=== PATIENT | female | born 1990 | race Caucasian/White ===

== ENCOUNTER 2019-08-20 11:08 | Emergency (ER) | payer OTHER, SELFPAY ==
--- NOTE | ~2019-08-20 | US_ITS ---
EXAMINATION: US soft tissue pelvic EXAM DATE: 08/20/2019 13:22 INDICATION: Right lower quadrant pain. TECHNIQUE: Multiple grayscale and Doppler images of the symptomatic right lower quadrant pelvic regio n were obtained (by a technologist who performed the scan) and subsequently reviewed. There is no pr ior study for comparison. FINDINGS: Appendix was searched for but not visualized on this exam. Please note that normal appendix is not e xpected to be visualized by ultrasound. Sometimes an abnormal appendix can be visualized. One of the se cine loops probably demonstrates uterus with IUD in expected position. The abdominal wall is unrem arkable. IMPRESSION: 1. Appendix not identified. Reviewed, dictated and finalized at location A. IMPRESSION: 1. Appendix not identified.
--- NOTE | ~2019-08-20 | US_ITS ---
EXAMINATION: US right upper quadrant EXAM DATE: 08/20/2019 13:20 INDICATION: Right quadrant pain. TECHNIQUE: Multiple grayscale and Doppler images of the abdomen right upper quadrant were obtained (caitlyn y a technologist who performed the scan) and subsequently reviewed. There is no prior study for jessenia ham. FINDINGS: The pancreatic head and body are normal in appearance. The pancreatic tail is not visualized. The l iver has normal echogenicity and contour. There are no focal liver lesions identified. There is no evidence of intrahepatic biliary duct dilation. Portal venous flow was seen in the hepatopedal, nor mal direction and has normal Doppler waveform. No right-sided hydronephrosis. Common bile duct measures 2 mm, which is normal. The gallbladder wall is normal in thickness, with ex pected amount of distention. No sonographic evidence of pericholecystic fluid. There is no cholelit hiases. Technologist performing exam reports patient did not demonstrate sonographic Mercado's sign. Please note that this sign is less reliable in patients who have received pain medication. IMPRESSION: 1. Unremarkable abdominal ultrasound exam. Reviewed, dictated and finalized at location A.
[2019-08-20] MEDS: SODIUM CHLORIDE 0.9% IV 1,000 ML 999 ML IV CONT ×2 (11:28→12:46)
[2019-08-20] MEDS: ONDANSETRON INJ 4 MG/2 ML VIAL IV PUSH (11:30)
[2019-08-20 11:32] VITALS: BP 131/78; PULSE 111; RESP 17; TEMP 36.4; O2SAT 98
[2019-08-20 11:38] LABS: Add Urine Microscopic? YES; Appearance Urine Clear (Clear); Bilirubin Urine Negative (Negative); Blood Urine Negative (Negative); Color Urine Yellow (Yellow); Glucose Urine UA Negative (Negative); Ketones Urine Negative (Negative); Leukocyte Esterase Ur Negative LEU/UL (Negative); Nitrate Urine Negative (Negative); Protein Urine Trace (Negative); Urobilinogen Urine 0.2 mg/dL (0.2-1.0); pH Urine 6.5 (5.0-8.0)
[2019-08-20 11:40] LABS: Pregnancy On Board Control Positive; Urine Pregnancy Test Negative
[2019-08-20 11:43] LABS: Bacteria Urine 3+ /hpf; RBC Urine 0-2 /hpf (0-2); Squamous Epithelial Cell Urine Moderate /hpf (Few); WBC Urine 0-3 /hpf (0-3)
[2019-08-20 11:50] LABS: Basophils Absolute Auto 0.04 K/mm3 (0.00-0.10); Basophils Percent Auto 0.3 % (0.0-1.0); Eosinophils Absolute Auto 0.09 K/mm3 (0.02-0.50); Eosinophils Percent Auto 0.7 % (1.0-6.0); Hemoglobin 15.9 g/dL (12.0-15.0); Immature Granulocyte Absolute 0.05 K/mm3 (0.00-0.00); Immature Granulocyte Percent A 0.4 % (0.0-0.0); Lymphocytes Absolute Auto 0.42 K/mm3 (1.10-4.50); Lymphocytes Percent Auto 3.3 % (18.0-42.0); Mean Corpuscular HGB Conc 33.1 g/dL (32.0-36.0); Mean Corpuscular Hemoglobin 29.1 pg (27.0-31.0); Mean Corpuscular Volume 87.8 fL (78.0-102.0); Mean Platelet Volume 10.7 fl (9.2-11.8); Monocytes Absolute Auto 0.42 K/mm3 (0.10-0.90); Monocytes Percent Auto 3.3 % (2.0-11.0); Neutrophils Absolute Auto 11.7 K/mm3 (1.7-7.2); Platelet Count Result 202 K/mm3 (150-420); Red Blood Count 5.47 M/mm3 (4.20-5.40); White Blood Count 12.7 K/mm3 (4.8-10.8)
[2019-08-20 12:01] LABS: Alanine Aminotransferase 21 U/L (14-59); Albumin Level 4.3 g/dL (3.4-5.0); Alkaline Phosphatase 60 U/L (46-116); Anion Gap 15.9 mmol/L (7-16); Aspartate Amino Transferase 18 U/L (15-37); Blood Urea Nitrogen 16 mg/dL (7-18); Calcium 8.7 mg/dL (8.5-10.1); Carbon Dioxide 24 mmol/L (21-32); Chloride 105 mmol/L (98-108); Estimated Glomerular Filt Rate > 60; Glucose 144 mg/dL (70-99); Osmolality Calculated 296 mOsm/kg (285-295); Potassium 3.9 mmol/L (3.5-5.1); Sodium 141 mmol/L (136-145); Total Protein 7.6 g/dL (6.4-8.2)
--- NOTE | 2019-08-20 12:30 | PC.NURSE ---
CONSENT TO [facility] FOR MEDICAL RECORDS
[2019-08-20 12:32] VITALS: BP 125/71; PULSE 80
--- NOTE | 2019-08-20 12:41 | ED.GENADULT ---
HPI - General Adult General Chief complaint: Nausea/Vomiting/Diarrhea Stated complaint: Possible fever,stomach crapping,vomiting,diarrhea History of Present Illness HPI narrative: Johana presented to the emergency department with abdominal pain nausea and vomiting. She had had chronic abdominal pain and nausea for 3 weeks. She was seen in ER last week for this without negative workup reportedly. However, this morning she workup with abdominal pain and profuse watery diarrhea and and NBNB vomiting. Denies melena, hematochezia and hematemesis. No chest pain or shortness of breath as well as syncope. No fevers or chills. Related Data Home Medications Medication Instructions Recorded Confirmed citalopram 40 mg PO DAILY 08/20/19 08/20/19 hydrocodone-acetaminophen [[place]] 1 tablet PO Q6H PRN 08/20/19 08/20/19 hydroxyzine HCl 10 mg PO QID PRN 08/20/19 08/20/19 lamotrigine 100 mg PO DAILY 08/20/19 08/20/19 metformin 500 mg PO DAILY 08/20/19 08/20/19 montelukast 10 mg PO DAILY 08/20/19 08/20/19 Allergies Allergy/AdvReac Type Severity Reaction Status Date / Time Sulfa (Sulfonamide Allergy Unknown HIVES Verified 02/01/19 22:10 Antibiotics) amoxicillin AdvReac Severe RESISTANCE Verified 02/01/19 22:10 Review of Systems Constitutional: Constitutional: Reports as per HPI Eyes: Eyes: Reports as per HPI ENT: Reports system reviewed and no additional complaints, except as documented Cardiovascular: Cardiovascular: Denies chest pain, Denies rapid heart rate and Denies radiating jaw, neck or arm pain Respiratory: Respiratory: Reports no additional respiratory complaints Gastrointestinal: Gastrointestinal: Reports as per HPI Genitourinary: Genitourinary: Reports no additional female genitourinary complaints Musculoskeletal: Musculoskeletal: Reports no additional musculoskeletal complaints Integumentary/Breasts: Skin/Breast: Reports system reviewed and no additional complaints, except as docu Neurologic: Reports system reviewed and no additional complaints, except as documented Psychiatric: Psychiatric: Reports no additional psychiatric complaints Endocrine: Endocrine: Reports no additional endocrine complaints Hematologic/Lymphatic: Hematologic/Lymphatic: Reports no additional hematologic/lymphatic complaints Allergic/Immunologic: Allergic/Immunologic: Reports no additional allergic/immunologic complaints Exam Const: Other: Lying in bed without acute distress. Was able to move around positions in bed without discomfort. HENMT: Other: normocephalic, atraumatic Eyes: Conjunctivae: conjunctivae normal Pupils: Equal, round and reactive pupils present Neck: Neck: normal visual inspection Chest: Chest palpation & inspection: normal inspection of the chest Resp: Effort & Inspection: normal respiratory effort and no use of accessory muscles Auscultation: clear to auscultation bilaterally Cardio: Rate: regular rate Rhythm: regular rhythm Heart sounds: no murmurs GI: GI Palp: Yes Soft to palpation Other: abdomen was soft and diffusely tender to palpation. She was most tender in the epigastric region but also had significant tenderness in the right lower quadrant and right upper quadrant. no guarding or rebound tenderness. negative obturator and psoas sign. normal bowel sounds. : General: Yes no CVA tenderness Back/Spine/Pelvis: Back: no CVA tenderness Skin: General skin exam: normal color Neuro: General: patient oriented x3 and moves all extremities Extrem: General: normal to inspection Psych: Mental Status: mental status grossly normal Course Course Emergency Course: Johana was seen and evaluated. she was given Zofran, a L fluids and labs were drawn. She did feel significantly better after the 1st L fluids and Zofran. Labs were significant for a UA that had no nitrites or leuk esterase, he did bacteria but also appeared to be a contaminated sample with multiple squamous cells. She
[2019-08-20] MEDS: MORPHINE SULFATE 4 MG/ML INJ IV PUSH (12:46)
[2019-08-20 13:59] VITALS: BP 111/59
== END 2019-08-20 14:00 | disposition home or self-care (01) ==
PROVIDERS: Emergency Provider Family Medicine; PCP Family Medicine
DX: K52.9 Noninfective gastroenteritis and colitis, unspecified (principal)
CPT/HCPCS: 36415; 76705; 76857; 80053; 81001; 81025; 85025; 96361; 96374; 96375; 99283; 99284; J2270; J2405; J7030

== ENCOUNTER 2022-07-07 19:24 | Emergency (ER) | payer BC, SELFPAY ==
--- NOTE | ~2022-07-07 | XR_ITS ---
EXAMINATION: XR shoulder LT min 2V DATE: 07/07/2022 20:39 INDICATION: Left shoulder pain. TECHNIQUE: 4 views of left shoulder were obtained. COMPARISON: None. FINDINGS: Bone alignment is normal. No fracture. Joint spaces are normal. IMPRESSION: 1. Normal left shoulder. Reviewed, dictated and finalized at location A. 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 Normal left shoulder.
[2022-07-07 19:33] VITALS: BP 138/65; PULSE 95; RESP 20; TEMP 36.6; O2SAT 100
--- NOTE | 2022-07-07 20:03 | ED.GENADULT ---
HPI - General Adult General Chief complaint: Extremity Injury, Upper Stated complaint: left arm injury Time Seen by Provider: 07/07/22 19:36 Source: patient Mode of arrival: ambulatory Limitations: no limitations History of Present Illness HPI narrative: Patient is a 32-year-old white female who yesterday was laying on her left side in her bathroom between the toilet and the bathtub trying to fix the pipes for 5 hours from 11:00 a.m. to 4:00 p.m. patient says that her pain has gradually increase over today and now it hurts and she can not raise her arm overhead unless she uses her right arm to lift it overhead. And then when she does lift it overhead it actually makes the pain better. Denies any numbness or tingling. Denies any neck pain pain is in her posterior shoulder and her left trapezius. Denies any joint pain when moving the shoulder or elbow or wrist pain. No previous injuries. Denies any trauma. She took ibuprofen this morning and last 1 was around 2:00 p.m. both were 200 mg. denies any other complaints. Denies any numbness tingling or weakness. She is not weak in the arm , it just hurts when she moves it. Been walking talking seen hearing voiding stooling and well without problems or cough shortness of breath rash or itching bleeding or bruising. Related Data Home Medications Medication Instructions Recorded Confirmed citalopram 40 mg tablet 40 mg PO DAILY 08/20/19 08/20/19 hydrocodone 5 mg-acetaminophen 325 1 tablet PO Q6H PRN Pain 08/20/19 08/20/19 mg tablet ([place]) hydroxyzine HCl 10 mg tablet 10 mg PO QID PRN Anxiety 08/20/19 08/20/19 lamotrigine 100 mg tablet 100 mg PO DAILY 08/20/19 08/20/19 metformin 500 mg tablet,extended 500 mg PO DAILY 08/20/19 08/20/19 release 24 hr montelukast 10 mg tablet 10 mg PO DAILY 08/20/19 08/20/19 Allergies Allergy/AdvReac Type Severity Reaction Status Date / Time Sulfa (Sulfonamide Allergy Unknown HIVES Verified 02/01/19 22:10 Antibiotics) amoxicillin AdvReac Severe RESISTANCE Verified 02/01/19 22:10 Review of Systems Constitutional: Constitutional: Reports as per HPI Eyes: Eyes: Reports as per HPI ENT: Reports system reviewed and no additional complaints, except as documented Cardiovascular: Cardiovascular: Reports as per HPI Respiratory: Respiratory: Reports as per HPI Gastrointestinal: Gastrointestinal: Reports as per HPI Genitourinary: Genitourinary: Reports no additional female genitourinary complaints Comments: has not been sexually active since she is a currently on her. Cannot be . Musculoskeletal: Musculoskeletal: Reports no additional musculoskeletal complaints, Reports as per HPI, Denies back pain, Denies myalgias, Denies arthralgias, Denies joint swelling and Reports muscle cramps Integumentary/Breasts: Skin/Breast: Reports system reviewed and no additional complaints, except as docu Neurologic: Reports system reviewed and no additional complaints, except as documented, Reports as per HPI, Denies focal weakness, Denies numbness and Denies weakness Exam Narrative: White female no apparent distress unless she tries to raise her left arm. She cannot raise is secondary to pain. She is able to raise her left arm using her right arm and then she has full range of motion. Left shoulder has tenderness the posterior deltoid area. She also so has pain in her left trapezius which is mild tenderness. Neck is nontender with full range of motion. She has range of motion of her left shoulder but no pain in the shoulder with range of motion. Her left elbows full range of motion any tenderness or pain with range of motion as is her wrist and hand. Her radial pulses +2 she has good capillary refill there of left hand. Lungs are clear heart is regular rate rhythm without murmurs gallops or rubs. Course Vital Signs Vital signs: Vital Signs Temperature 36.6 C 07/07/22 19:33 Pulse Rate 95 07/07/22 19:33 Respiratory Rate 20
[2022-07-07] MEDS: KETOROLAC 30 MG/ML VIAL (*BKC) IM (20:25)
[2022-07-07 21:05] VITALS: BP 140/90; PULSE 80; RESP 20; TEMP 36.6; O2SAT 98
--- NOTE | 2022-07-07 21:09 | PC.NURSE ---
patient unsure of home meds
== END 2022-07-07 21:08 | disposition home or self-care (01) ==
PROVIDERS: Emergency Provider Emergency Medicine; PCP Family Medicine
DX: M25.512 Pain in left shoulder (principal); Z79.891 Long term (current) use of opiate analgesic; Z79.84 Long term (current) use of oral hypoglycemic drugs
CPT/HCPCS: 73030; 96372; 99283; J1885

== ENCOUNTER 2022-07-23 17:49 | Emergency (ER) | payer BC, SELFPAY ==
[2022-07-23 18:03] VITALS: BP 139/84; PULSE 100; RESP 16; TEMP 36.8; O2SAT 100
--- NOTE | 2022-07-23 18:49 | ED.GENADULT ---
HPI - General Adult General Chief complaint: Extremity Injury, Upper Stated complaint: INJURED L SHOULDER Time Seen by Provider: 07/23/22 18:51 Source: patient, RN notes reviewed and old records reviewed Mode of arrival: ambulatory Limitations: no limitations History of Present Illness HPI narrative: 32 year old female [facility] with complaints of 2 week duration of left shoulder pain. Patient states that she was lying on her arm doing some home repair work and her left upper arm and shoulder started hurting. Patient reports that she was seen in the ER at [place] and x-rayed and was given some exercises to do but pain is still constant. Patient reports that she has been taking Ibuprofen around the clock and her pain remains 7/10. She reports that pain is now going down to her elbow up her neck and to posterior upper back and she displays decreased mobility of her left arm. Patient also states she has had cervical neck problem in past. MD complaint: left shoulder pain Onset (ago): week(s) (2) Radiation: back (upper left back), neck and other (down to elbow) Severity scale (1-10): 7 Treatments prior to arrival: NSAID and cold therapy Related Data Home Medications Medication Instructions Recorded Confirmed hydroxyzine HCl 10 mg tablet 10 mg PO QID PRN Anxiety 08/20/19 07/23/22 montelukast 10 mg tablet 10 mg PO DAILY 08/20/19 07/23/22 fluticasone propionate 50 1 spray intranasal DAILY 07/23/22 07/23/22 mcg/actuation nasal spray,suspension gnvadqlu-arhkazgj-eug C 250 1 tablet PO DAILY 07/23/22 07/23/22 mg-herbal no.124 11.66 mg chewable tablet (Airborne Gummy) Allergies Allergy/AdvReac Type Severity Reaction Status Date / Time Sulfa (Sulfonamide Allergy Unknown HIVES Verified 07/23/22 18:09 Antibiotics) amoxicillin AdvReac Severe RESISTANCE Verified 07/23/22 18:09 Review of Systems Review of Systems: CONSTITUTIONAL: Denies fever, chills, or sweats. EYES: Denies visual changes, redness, or discharge. ENT: Denies rhinorrhea, congestion, sore throat, or otalgia. CARDIOVASCULAR: Denies chest pain, palpitations, or edema. RESPIRATORY: Denies cough or dyspnea. GASTROINTESTINAL: Denies abdominal pain, nausea, vomiting, or diarrhea. GENITOURINARY: Denies dysuria or hematuria. SKIN: Denies rash or itching. MUSCULOSKELETAL: Denies back pain,positive for left shoulder pain with decreased mobility or myalgia. NEUROLOGIC: Denies headache, numbness, or weakness. PSYCHIATRIC: Denies anxiety or depression. All systems reviewed & are unremarkable except as noted in HPI and below PMFSH Comments At time of signature, agree with nursing past medical, surgical, social and family history. There is no relevant family history pertinent to the presenting complaint Exam Narrative: GENERAL: Well-appearing, well-nourished, and in no acute distress. HEAD: Normocephalic, atraumatic. EYES: PERRLA and EOMI. ENT: Nares clear, no rhinorrhea or epistaxis. Mucous membranes moist.TM's normal with good light reflex, throat pink with no lesions or swelling NECK: Supple.no lymphadenopathy CHEST: Clear to auscultation. No respiratory distress. HEART: Regular rate and rhythm. No murmur heard. Normal peripheral pulses. ABDOMEN: Soft, nontender, nondistended, normal active bowel sounds. EXTREMITIES: Normal range of motion. No edema.Left shoulder pain for 2 week duration with now reported radiation down to elbow, up left neck and upper left back with decreased mobility to left arm. Patient reports some spasming sensations in left upper arm, pulses strong to left arm, no tingling or numbness sensation in left arm or fingers, warm and pink in color. SKIN: Warm, dry, no rash. NEURO: No focal deficits. Alert and oriented x3. Course Course Emergency Course: Patient is aware of diagnosis, understands and agrees to treatment plan.? Anticipatory guidance given.? Patient agrees to follow-up as directed and is aware of reasons to seek care at the e
== END 2022-07-23 19:09 | disposition home or self-care (01) ==
PROVIDERS: Emergency Provider Registered Nurse; PCP Family Medicine
DX: M25.512 Pain in left shoulder (principal)
CPT/HCPCS: 99213; G0463

== ENCOUNTER 2022-08-19 07:43 | Outpatient (RCR) | payer BC, SELFPAY ==
[2022-08-19 07:05] VITALS: BP_SYST 111
--- NOTE | 2022-08-19 08:03 | PTOPEVAL1 ---
Assessment and note entered by Suyapa Beckman DPT Evaluation Information Assessment Status Evaluation Diagnosis L shoulder pain Onset 07/06/22 Subjective Information Patient reports that she was attemting to fix pipes after they froze on 07/06/22. She states she felt sore and tingling but the next morning she could not move her arm. She reports she got an MRI 08/09/22 that showed a SLAP tear. She reports her arm has gotten better since the injury but she still has difficulty doing her hair, dressing, sleeping and performing house hold chores. Prior patient has had neck pain with dereased strength and ROM of the L arm/hand. Patient does office work for a living. Reported Pain Level Pain Score 6,3: Self Report Assessment PT Clinical Summary Patient is a 32 year old female who presents to PT with L shoulder SLAP lesion. She demonstrates significiant pain levels and gaurding with decreased L shoulder strength and ROM. She has difficulty with doing her hair, dressing, sleeping and performing house hold tasks. She would benefit from skilled PT to address impairments and return to [facility]. Plan of Care Interventions Electrical Stimulation,Hot Pack/Cold Pack,Manual Therapy,Neuro Re-education,Patient/Caregiver Educati,Therapeutic Activities,Therapeutic Exercise,Self-Care/Home Management PT Services Indicated Yes Treatment Frequency and 3x/weekly for 12 visits Duration These treatments will address the objective and functional deficits as defined above. The patient will be advanced safely and appropriately in order for the patient to progress towards his/her prior level of function. Additional exercises will be introduced and as well as a comprehensive home exercise program upon discharge, if needed, ?to ensure carryover of functional gains achieved in the clinic. This treatment plan has been reviewed and agreement upon by the patient.
--- NOTE | 2022-09-09 13:30 | PTOPREEVAL ---
Assessment and note entered by JT File, PT Evaluation Information Assessment Status Progress Diagnosis L shoulder pain Onset 07/06/22 Subjective Information patient reports she feels much better overall. she reports she continues to have weakness in the L arm and difficulty with reaching overhead. however, she reports recently she has been able to reach her head to do her hair. Assessment PT Clinical Summary mrs. lopez presents to skilled PT services for her 10th skilled therapy visit today. she presents with improved L shoulder arom, prom, and strength noting progress towards all goals set forth at initial evaluation. however, she continues to be limited in active/functional mobility and strength of the L shoulder. she would benefit from continued skilled PT to further progress towards a return to full prior level functional activity performance/quality of life. Plan of Care Interventions Electrical Stimulation,Hot Pack/Cold Pack,Manual Therapy,Neuro Re-education,Patient/Caregiver Educati,Therapeutic Activities,Therapeutic Exercise,Self-Care/Home Management PT Services Indicated Yes Treatment Frequency and continue skilled PT 2x weekly for 6 more visits Duration These treatments will address the objective and functional deficits as defined above. The patient will be advanced safely and appropriately in order for the patient to progress towards his/her prior level of function. Additional exercises will be introduced and as well as a comprehensive home exercise program upon discharge, if needed, ?to ensure carryover of functional gains achieved in the clinic. This treatment plan has been reviewed and agreement upon by the patient.
--- NOTE | 2022-10-08 17:58 | PTOPDC ---
Assessment and note entered by JT File, PT Evaluation Information Assessment Status Re-evaluation Diagnosis L shoulder pain Onset 07/06/22 Subjective Information patient reports she feels good this date. she reports she really has no pain in the L shoulder . she reports she is dressing and doing hair independent at home. Reported Pain Level Pain Score 0: Self Report Assessment PT Clinical Summary mrs. lopez presents to skilled PT with improved rom and functional mobility. however, she continues to display weakness of the L shoulder. she has met all goals for skilled PT, except for her strength goals. she will DC skilled PT today and continue with independent HEP at home. Plan of Care PT Services Indicated Yes
== END 2022-10-08 10:08 | disposition home or self-care (01) ==
LOC: CHSPT 07:43
PROVIDERS: Visit Provider Physician Assistant Surgical
DX: S43.432D Superior glenoid labrum lesion of left shoulder, subsequent encounter (principal)
CPT/HCPCS: 97014; 97110; 97140; 97161; 97530; G0283

== ENCOUNTER 2022-12-01 14:48 | Outpatient (CLI) | payer BC, SELFPAY ==
--- NOTE | 2022-12-03 12:38 | WPDHOLTEREM ---
Holter/Event Monitor Holter/Event Monitor Date of procedure: 12/01/22 Holter/Event Procedure: 24 Hr Holter Monitor Indications: Palpitations Conclusion: 1. 24 hour holter monitor on 12/01/22. 2. Underlying rhythm is sinus rhythm. HR range 49-136 bpm; average HR 84 bpm. 3. There are 2 premature supraventricular complexes. No supraventricular tachycardia. 4. There are 303 premature ventricular complexes. No ventricular tachycardia. 5. No sinoatrial or atrioventricular blocks. No significant pauses greater than 2 seconds. 6. Patient reports symptoms of chest pain, chest tightness which demonstrate sinus rhythm, HR range 73-99 bpm.
== END 2022-12-01 14:49 | disposition home or self-care (01) ==
DX: R00.2 Palpitations (principal)
CPT/HCPCS: 93225; 93226

== ENCOUNTER 2023-01-28 00:55 | Day surgery (SDC) | payer BC, SELFPAY ==
[2023-01-25 16:06] VITALS: BMI 25.5
--- NOTE | 2023-01-25 16:18 | PC.NURSE ---
Report to the Outpatient Waiting Room, entrance under the green pavilion located off [facility], at time 1015 on date 01/28/23. Planned Procedure Time: 1215. Time changes happen often and if your time is changed the preop area will call you the afternoon before. - You and your visitor will be asked to self-screen and do not enter if you have any COVID symptoms. - A mask is optional within the hospital at this time. Patients may have clear liquids (water, carbonated beverages, clear teas, apple juice) until 3 hours prior to surgery with a maximum of 20 ounces. - No food from midnight until time of surgery Take the following medications with a SIP of water the morning of surgery: HYDROXYZINE IF NEEDED DO NOT STOP ANY OF YOUR OTHER PRESCRIPTION MEDICATIONS PRIOR TO SURGERY ?EXCEPT THE FOLLOWING Medications to discontinue per physician: VITAMINS/SUPPLEMENTS Date to take last dose: NO MORE UNTIL AFTER SURGERY Please no make-up, nail lithuanian, hairspray, perfume, deodorant, or body powder the day of surgery. No jewelry (including any body piercings) or valuables the day of surgery, leave them at home. Please take a shower or bath the night before, or the morning of, surgery with an antibacterial soap. Wear comfortable, loose fitting clothing. - Jewelry must be removed prior to entering the operating room. Rings and piercings that are not removed may be cut off. - The hospital will not accept responsibility for valuables. - Please leave all valuables, including medications, at home the day of surgery. If you are going home after surgery, a licensed bulk driver must drive you home. - NO public transportation without another adult if you receive anesthesia. - We recommend that an adult stay with you for 24 hours following discharge. - We also recommend that you do not drive, make important decision, drink alcoholic beverages, or take any drugs that were not prescribed by your health care provider for at least 24 hours after your discharge time. Follow any additional instructions given to you from your surgeon. If you or anyone in your household have experienced Covid symptoms in the past week, please notify your surgeon or the nurse liaison at the phone number below for possible testing. Telephone instructions given to PT - JOANNA MARTINEZ and asked if any additional questions and then verbalized understanding. Patient advised to call surgeon office or pre surgery nurse liaison [phone] if any additional questions.
--- NOTE | 2023-01-26 07:07 | PM.IMHP ---
H&P: HPI History of Present Illness Date/Time: 01/26/23 07:07 Chief Complaint: Desires sterilization/pelvic pain/abnormal bleeding Narrative: This is a 32-year-old female multiparous patient who is admitted for tubal ligation hysteroscopy/dilatation curettage last ablation. She has heavy periods and desires permanent sterilization. She understands this to be a permanent irreversible procedure and alternatives were reviewed including but not exclusive of pills, patches, injections, implants, etc.. [facility] Past Medical History Medical History History of bruising easily Surgical History Surgical History History of dental surgery History of surgery Exploratory Uterine History of tonsillectomy Family History Family History Other Arthritis Social History Social History Smoking packs per day: 0.5 Smoking cigarettes per day: 10.0 Years smoked: 20 Smoking pack-years: 10.00 Smoking status: Current every day smoker Tobacco type: cigarettes Alcohol intake: current Drinks per week: 2 Substance use: never Substance use type: does not use Lack of Transportation: No Lack of Food: Never True Current Housing: I Have Housing Concerned About Future Housing: No Difficulty Paying Gas/Electric Bills: No Difficulty Paying for Meds: No Currently Unemployed: No Education: Trade/Vocational Certificate Difficulty w/ Childcare or Family Care: No Living arrangements: with family Additional living arrangements comments: CHILDREN Spiritual care concerns: No Meds Home Medications and Allergies Home Medications Medication Instructions Recorded Confirmed Type hydroxyzine HCl 10 mg tablet 10 mg PO QID PRN Anxiety 08/20/19 01/25/23 History montelukast 10 mg tablet 10 mg PO DAILY 08/20/19 01/25/23 History fluticasone propionate 50 1 spray intranasal DAILY 07/23/22 01/25/23 History mcg/actuation nasal spray,suspension peceyven-trvzmwsu-gqq C 250 1 tablet PO DAILY 07/23/22 01/25/23 History mg-herbal no.124 11.66 mg chewable tablet (Airborne Gummy) triamcinolone acetonide 55 mcg 1 spray intranasal DAILY 08/16/22 01/25/23 History nasal spray aerosol (Nasacort) Allergies Allergy/AdvReac Type Severity Reaction Status Date / Time paliperidone [From Invega] Allergy Unknown Unknown Verified 01/25/23 16:04 Sulfa (Sulfonamide Allergy Unknown HIVES Verified 01/25/23 16:04 Antibiotics) amoxicillin AdvReac Severe RESISTANCE Verified 01/25/23 16:04 Exam Const: General: cooperative, healthy appearing and comfortable Nutritional Appearance: average body habitus Orientation/consciousness: oriented to person, oriented to place and oriented to time HENMT: Head: normal to inspection Resp: Effort & Inspection: normal respiratory effort Cardio: Rate: regular rate Rhythm: regular rhythm Heart sounds: S1 normal heart sound present and S2 normal heart sound present GI: Inspection: normal to inspection Auscultation: normal bowel sounds : External Female Exam: normal external appearance Speculum Exam - Vagina: normal appearance of the vagina Speculum Exam - Cervix: normal appearance of the cervix Bimanual exam- vagina & uterus: uterine shape normal Bimanual Exam- Adnexa, other: normal adnexae Assessment and Plan Assessment and plan (1) Sterilization: Code(s): Z30.2 - Encounter for sterilization Status: Acute (2) Excessive bleeding: Code(s): R58 - Hemorrhage, not elsewhere classified Status: Acute Plan Laparoscopic tubal ligation/hysteroscopy/dilatation curettage/Estefanía ablation
--- NOTE | 2023-01-27 12:01 | WPDANESEPPF ---
Anes - Initial Pre Proc Eval Procedure: Operation Date: 01/28/23 12:15 Proposed Procedures p Laparoscopic Bilateral Tubal Sterilization, - Nasir Schofield MD s Hysteroscopy Dilation and Curettage with Estefanía Endometrial Ablation - Nasir Schofield MD Date/Time: 01/27/23 12:01 Surgeon: Nasir Schofield MD Pre Op Diagnosis: desires sterilaztion, pelvic pain, dysmenorrhea Patient Data Age: 32 Gender: F Height: 1.75 m Weight: 78.5 kg Allergies Allergy/AdvReac Type Severity Reaction Status Date / Time paliperidone [From Invega] Allergy Unknown Unknown Verified 01/25/23 16:04 Sulfa (Sulfonamide Allergy Unknown HIVES Verified 01/25/23 16:04 Antibiotics) amoxicillin AdvReac Severe RESISTANCE Verified 01/25/23 16:04 Home Medications Medication Instructions Recorded Confirmed Type hydroxyzine HCl 10 mg tablet 10 mg PO QID PRN Anxiety 08/20/19 01/25/23 History montelukast 10 mg tablet 10 mg PO DAILY 08/20/19 01/25/23 History fluticasone propionate 50 1 spray intranasal DAILY 07/23/22 01/25/23 History mcg/actuation nasal spray,suspension kgzxkokc-wkavycmy-elz C 250 1 tablet PO DAILY 07/23/22 01/25/23 History mg-herbal no.124 11.66 mg chewable tablet (Airborne Gummy) triamcinolone acetonide 55 mcg 1 spray intranasal DAILY 08/16/22 01/25/23 History nasal spray aerosol (Nasacort) hydrocodone 5 mg-acetaminophen 325 1 tablet PO Q4H PRN pain #20 tabs 01/28/23 Rx mg tablet Patient hx anesthesia problems: none Family hx anesthesia problems: none Results Review: All pre-operative results and documents have been reviewed as part of the pre-operative evaluation. [facility] Past Medical History Medical History (Updated 01/27/23 @ 12:02 by Jordan Huff DO) Anxiety Asthma Bipolar disorder History of bruising easily Hypertension PVC (premature ventricular contraction) Seizure Surgical History Surgical History History of dental surgery History of surgery Exploratory Uterine History of tonsillectomy Family History Family History Other Arthritis Social History Social History Smoking packs per day: 0.5 Smoking cigarettes per day: 10.0 Years smoked: 20 Smoking pack-years: 10.00 Smoking status: Current every day smoker Tobacco type: cigarettes Alcohol intake: current Drinks per week: 2 Substance use: never Substance use type: does not use Lack of Transportation: No Lack of Food: Never True Current Housing: I Have Housing Concerned About Future Housing: No Difficulty Paying Gas/Electric Bills: No Difficulty Paying for Meds: No Currently Unemployed: No Education: Trade/Vocational Certificate Difficulty w/ Childcare or Family Care: No Living arrangements: with family Additional living arrangements comments: CHILDREN Spiritual care concerns: No Anes - Eval Final PreProcedure Day of Procedure 01/27/23 12:01 Patient weight: overweight Heart: regular rate and rhythm Lungs: clear to auscultation Airway: Mallampati scale class II Neurological: alert and oriented Last oral intake: >/= 8 hours ASA classification: III Emergent: no Anesthetic plan: proceed Anesthesia type and monitoring: general ETT and standard monitoring Results Review: All pre-operative results and documents have been reviewed as part of the pre-operative evaluation. Informed Consent: The patient's anesthetic plan and its attendant risks and benefits were discussed with the patient/family/POA. Questions were solicited and answers provided to the satisfaction of the patient/family/POA.
[2023-01-28] VITALS (10 sets, daily range): BP systolic 119–150; BP diastolic 70–95; PULSE 52–100; RESP 12–20; TEMP 36.3–36.5; O2SAT 94–100
--- NOTE | 2023-01-28 06:32 | WPDHPUPDATE1 ---
History and Physical Update Update Date/Time: 01/28/23 06:32 History and Physical has been reviewed, including an updated exam of the patient. There are NO changes in the patient's condition. Risks, benefits, and alternatives have been discussed and questions answered. Patient agrees to proceed with procedure.
--- NOTE | 2023-01-28 09:47 | ECG_ITS ---
Measurements Intervals [place] Rate: 54 P: -4 MA: 129 QRS: 66 QRSD: 84 T: 35 QT: 411 QTc: 390 Interpretive Statements SINUS BRADYCARDIA WITH SINUS ARRHYTHMIA NORMAL ECG COMPARED TO ECG 02/01/2019 22:39:09 HEART RATE REDUCED Electronically Signed On 01-28-2023 14:48:08 CDT by Naveen Laws M.D.
[2023-01-28] MEDS: LACTATED RINGERS 1,000 ML 30 ML IV CONT ×2 (11:18→13:40)
[2023-01-28] MEDS: ACETAMINOPHEN 500 MG TABLET 1000 MG PO (11:19)
[2023-01-28] MEDS: KETOROLAC 15 MG/ML VIAL (*BKC) IV PUSH (11:19)
--- NOTE | 2023-01-28 12:31 | P.OP_ITS ---
Procedure Note - Detailed Date of Procedure 01/28/23 Pre-op Diagnosis desires sterilaztion, pelvic pain, dysmenorrhea Post-op Diagnosis Same Procedure Performed Laparoscopic bilateral tubal ligation with rings/hysteroscopy/dilatation cure ttage/Estefanía ablation Surgeon Nasir Schofield MD Anesthesia General Indications Since 32-year-old female desires permanent sterilization with excessive heavy bleeding Findings On laparoscopy normal-appearing uterus tubes ovaries. On hysteroscopy normal- appearing endometrial seen Description of Procedure Patient was prepped draped in the normal sterile fashion placed in the dorsal lithotomy position. Under speculum placed in posterior neck anterior lip of the cervix grasped with single-tooth tenaculum. Berry's cannula inserted the cervix and the 2 were attached to be used later for uterine manipulation. The weighted speculum was removed and the bladder emptied of clear urine. Gloves were changed An infraumbilical incision made. Veress needle passed in the abdomen. Abdomen filled with CO2 gas [id number]. The 5mm trocar advanced under direct visualization assuring no injury. Patient placed in Trendelenburg and a suprapubic incision made. The 8mm trocar advanced under direct visualization assuring no injury. The left fallopian tube was grasped and a good knuckle of tube formed with good blanching. The right fallopian tube was like [place] grasped and a good knuckle of tube formed with excellent blanching. Photo documentation was undertaken and there were no other abnormalities. The patient was taken out of Trendelenburg. The gas removed from the abdomen the trocars removed the incisions closed with 4 Monocryl and glue. Attention was turned to the hysteroscopy. Uterus sounded to 8cm. Serial dilatation with fragmented dilators performed followed by passage of the 5mm of ED hysteroscope using normal saline as visualizing medium. Photo documentation was undertaken no abnormalities were seen. The uterus was then scraped over the entire 360? until good grating sound was heard. The instruments withdrawn and the Estefanía instrument placed in the uterus. The appropriate settings were placed and the endometrium was burned for 120seconds. The Estefanía instrument was withdrawn and the hysteroscope reinserted. Excellent burn was seen and photo documentation undertaken. The remainder the instruments removed. The patient was awakened went to recovery in satisfactory condition. All sponge, needle, instrument counts were correct. There were no immediate complications Estimated Blood Loss 5 Drains No Packing No Pathology Yes Complications No immediate complications Condition Stable Disposition PACU
[2023-01-28] MEDS: fentaNYL CITRATE INJ (*CRX) 100 MCG/2 ML VIAL 25 MCG IV PUSH ×5 (12:50→13:14)
[2023-01-28] MEDS: ONDANSETRON INJ 4 MG/2 ML VIAL IV PUSH (13:36)
[2023-01-28] MEDS: SCOPOLAMINE 1.5 MG PATCH TRANSDERM (14:09)
[2023-01-28] MEDS: diphenhydrAMINE HCl INJ 50 MG/ML VIAL 12.5 MG IV PUSH (14:13)
== END 2023-01-28 15:10 | disposition home or self-care (01) ==
PROVIDERS: Visit Provider Obstetrics & Gynecology
PROC: (CPT 58671; principal; 2023-01-28 12:15)
PROC: 0U5B8ZZ Destruction of Endometrium, Via Natural or Artificial Opening Endoscopic (ICD-10-PCS; CPT 58563; 2023-01-28 12:15)
DX: Z30.2 Encounter for sterilization (principal); N93.9 Abnormal uterine and vaginal bleeding, unspecified; R10.2 Pelvic and perineal pain; N94.6 Dysmenorrhea, unspecified; J45.909 Unspecified asthma, uncomplicated; I10 Essential (primary) hypertension; I49.3 Ventricular premature depolarization; F17.210 Nicotine dependence, cigarettes, uncomplicated
CPT/HCPCS: 58671; 58563; 88305; 93005; A4264; A9270; J1100; J1170; J1200; J1885; J2250; J2405; J2704; J3010; J7120

== ENCOUNTER 2023-03-26 12:57 | Outpatient (CLI) | payer BC, SELFPAY ==
[2023-03-26 13:42] LABS: Uric Acid 4.1 mg/dL (2.6-6.0)
[2023-03-26 13:49] LABS: Rheumatoid Factor Screen Negative (Negative)
[2023-03-26 14:34] LABS: Erythrocyte Sedimentation Rate 5 mm/hr (0-15)
[2023-03-30 04:33] LABS: Thyroid Peroxidase Antibodies <1 IU/mL (<9)
[2023-03-31 13:53] LABS: Thyroid Stimulating Immunoglob <89 % baseline (<140)
[2023-03-31 14:12] LABS: Glutamic acid decarboxylase AA <5 IU/mL (<5)
[2023-03-31 14:23] LABS: Anti Nuclear Antibody Titer 1:40 (Negative)
[2023-03-31 21:56] LABS: Immunoglobulin A 215 mg/dL (47-310); TTG IGA AB <1.0 U/mL (<15.0)
== END 2023-03-26 12:58 | disposition home or self-care (01) ==
LOC: CHSLAB 13:01
PROVIDERS: PCP Family Medicine
DX: E31.0 Autoimmune polyglandular failure (principal)
CPT/HCPCS: 36415; 82784; 83516; 84445; 84550; 85652; 86038; 86039; 86255; 86337; 86341; 86376; 86430